=== PATIENT | male | born 1980 | race Caucasian/White ===

== ENCOUNTER 2019-02-02 21:02 | Emergency (ER) | payer BC, SELFPAY ==
[2019-02-02 21:10] VITALS: BP 160/105; PULSE 107; RESP 17; TEMP 36.7; O2SAT 97; BMI 33.5
--- NOTE | 2019-02-02 21:15 | DI.RAD.S_ITS ---
PROCEDURE: XR CHEST 1V INDICATIONS: palpitations TECHNIQUE: One view of the chest was acquired. COMPARISON: None. FINDINGS: Surgical changes and devices: None. Lungs and pleura: Lungs are clear. No pleural effusions or pneumothorax. Mediastinum: Mediastinal contours appear normal. Heart size is normal. Bones and chest wall: No suspicious bony lesions. Overlying soft tissues appear unremarkable. IMPRESSION: No evidence acute pulmonary process. Dictated by: Jan Russell M.D. on 02/02/2019 at 22:07 Approved by: Jan Russell M.D. on 02/02/2019 at 22:07
--- NOTE | 2019-02-02 21:19 | ED_ITS ---
HPI - Dizziness General Chief Complaint: Dizziness Stated Complaint: DOES NOT FEEL RIGHT , CAN'T EXPLAIN IT Time Seen by Provider: 02/02/19 21:19 Source: patient Mode of arrival: ambulatory Limitations: no limitations History of Present Illness HPI Narrative: Patient is a 39-year-old male here for evaluation of vague complaints to include not feeling very well and palpitations and lightheadedness. He states the symptoms started earlier today. He states he was at work. 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 He states that there were other individuals in the area down there are no one else felt sick. He states that he suddenly did not feel very good. He states the symptoms continued. He did you to dinner this evening. States he had 2 beers at dinner. He came in because he which is not feeling very well. Related Data Allergies Allergy/AdvReac Type Severity Reaction Status Date / Time No Known Drug Allergies Allergy Verified 02/02/19 21:10 Review of Systems Constitutional Denies fever(s), Reports lethargy and Reports weakness ENT Ears, Nose, Mouth, and Throat: Denies vertigo, Reports dizziness and Reports disequilibrium Cardiovascular Denies chest pain, Reports rapid heart rate, Reports palpitations and Denies dyspnea Respiratory Denies dyspnea Gastrointestinal Gastrointestinal: Denies abdominal pain, Reports nausea and Denies vomiting Musculoskeletal Denies back pain, Denies myalgias and Denies arthralgias Integumentary/Breasts Denies rash Neurologic Denies confusion, Denies vertigo, Reports dizziness, Reports disequilibrium and Reports weakness Psychiatric Denies confusion Endocrine Reports palpitations Hematologic/Lymphatic Denies easy bleeding and Denies easy bruising Allergic/Immunologic Denies urticaria [facility] Medical History Hypertension (Acute) Social History Smoking Status: Current every day smoker Social History Smoking Status: Current every day smoker Exam Initial Vital Signs Initial Vital Signs: Vital Signs Temperature 98.1 F 02/02/19 21:10 Pulse Rate 107 H 02/02/19 21:10 Respiratory Rate 17 02/02/19 21:10 Blood Pressure 160/105 H 02/02/19 21:10 Pulse Oximetry 97 02/02/19 21:10 Const General: cooperative, comfortable, well developed, well groomed and No acute distress Orientation: alert, awake and oriented x3 HENMT Head: normal to inspection and normocephalic Resp Effort & Inspection: normal respiratory effort Auscultation: clear to auscultation bilaterally Cardio Rate: tachycardic Rhythm: regular rhythm GI Inspection: non-distended Palpation: soft, No firm and No tender Skin Lesions: no lesions Rashes: no rashes Neuro General: alert, awake and oriented x3 Cognition: normal cognition Speech: speech normal Gait: normal gait Motor: muscle tone normal throughout Sensory Exam: no sensory deficits noted Extrem General: normal to inspection and capillary refill normal Other: Deformity of the left hand secondary to a prior injury. Psych Appearance: grossly normal and well kempt Course Orders Ordered: ED Orders 02/02/19 21:15 XR chest 1V Stat EKG-12 Lead Stat 02/02/19 21:18 Complete Blood Count AUTO DIFF Stat Comprehensive Metabolic Panel Stat Ethanol (ETOH) Stat Lipase Stat Thyroid Stimulating Hormone Stat 02/02/19 22:17 Urine Drug Screen, Rapid Stat Vital Signs - 8 hr 02/02/19 21:10 02/02/19 21:30 02/02/19 22:00 Temperature 98.1 F Pulse Rate 107 H 100 H 94 H Respiratory Rate 17 12 12 Blood Pressure 160/105 H Blood Pressure [Right Arm] 133/81 154/98 H Pulse Oximetry 97 95 96 02/02/19 23:15 Temperature 97.6 F Pulse Rate 90 Respiratory Rate 18 Blood Pressure Blood Pressure [Right Arm] 142/79 H Pulse Oximetry 96 MDM - Dizziness Lab Data Attestation: I reviewed the patient's lab results. Result diagrams: 02/02/19 21:18 02/02/19 21:18 Lab Results 02/02/19 02/02/19 02/02/19 Range/Units 21:18 21:18 21:18 WBC 9.8 (4.5-11.0) X10^3/uL RBC 4.70 (4.5-5.9) X10^6/uL Hgb 13.8 (13.5-17.5) g/dL Hct 40.6 L (41-53) % MCV 86.4 (80-100) fL MCH 29.5 (26-34) PG MCHC 34.1 (30-36) % RDW 15.6 H (11.6-14.8) % Plt Count 267 (150-400) X10^3/uL Neut % (Auto) 59.6 (50-75) % Lymph % (Auto) 27.1 (25-40) % [place] % (Auto) 11.0 (3-14) % Eos % (Auto) 1.6 L (2-4) % Baso % (Auto) 0.7 (0-2) % Neut # (Auto) 5900 (1001-1455) /uL Lymph # (Auto) 2700 (2240-5436) /uL [place] # (Auto) 1100 H (0-900) /uL Eos # (Auto) 200 (0-450) /uL Baso # (Auto) 100 (0-100) /uL Sodium 138 (137-145) mmol/L Potassium 3.8 (3.4-5.1) mmol/L Chloride 98 (98-107) mmol/L Carbon Dioxide 26 (22-32) mmol/L BUN 22 H (9-20) mg/dL Creatinine 0.90 (0.66-1.25) mg/dL Estimated GFR > 60.0 (>60) mL/min BUN/Creatinine Ratio 24.4 H (6-22) Glucose 110 H (70-100) mg/dL Calcium 9.5 (8.4-10.2) mg/dL Total Bilirubin 0.5 (0.2-1.3) mg/dL AST 44 (17-59) IU/L ALT 49 (21-72) IU/L Alkaline Phosphatase 47 (38-126) U/L Total Protein 8.8 H (6.3-8.2) g/dL Albumin 5.0 (3.5-5.0) g/dL Globulin 3.8 (1.7-4.1) g/dL Albumin/Globulin Ratio 1.3 (1.0-2.8) Lipase 61 (23-300) U/L TSH 2.86 (0.47-4.68) uIU/mL Urine Opiates Screen (Negative) Ur Oxycodone Screen (Negative) Urine Methadone Screen (Negative) Ur Barbiturates Screen (Negative) U Tricyclic Antidepress (Negative) Ur Phencyclidine Scrn (Negative) Ur Amphetamines Screen (Negative) U Methamphetamines Scrn (Negative) Ur MDMA Scrn (Ecstasy) (Negative) U Benzodiazepines Scrn (Negative) Urine Cocaine Screen (Negative) U Marijuana (THC) Screen (Negative) Ethyl Alcohol < 10 mg/dL 02/02/19 Range/Units 22:17 WBC (4.5-11.0) X10^3/uL RBC (4.5-5.9) X10^6/uL Hgb (13.5-17.5) g/dL Hct (41-53) % MCV (80-100) fL MCH (26-34) PG MCHC (30-36) % RDW (11.6-14.8) % Plt Count (150-400) X10^3/uL Neut % (Auto) (50-75) % Lymph % (Auto) (25-40) % [place] % (Auto) (3-14) % Eos % (Auto) (2-4) % Baso % (Auto) (0-2) % Neut # (Auto) (6794-8251) /uL Lymph # (Auto) (4452-2093) /uL [place] # (Auto) (0-900) /uL Eos # (Auto) (0-450) /uL Baso # (Auto) (0-100) /uL Sodium (137-145) mmol/L Potassium (3.4-5.1) mmol/L Chloride (98-107) mmol/L Carbon Dioxide (22-32) mmol/L BUN (9-20) mg/dL Creatinine (0.66-1.25) mg/dL Estimated GFR (>60) mL/min BUN/Creatinine Ratio (6-22) Glucose (70-100) mg/dL Calcium (8.4-10.2) mg/dL Total Bilirubin (0.2-1.3) mg/dL AST (17-59) IU/L ALT (21-72) IU/L Alkaline Phosphatase (38-126) U/L Total Protein (6.3-8.2) g/dL Albumin (3.5-5.0) g/dL Globulin (1.7-4.1) g/dL Albumin/Globulin Ratio (1.0-2.8) Lipase (23-300) U/L TSH (0.47-4.68) uIU/mL Urine Opiates Screen Negative (Negative) Ur Oxycodone Screen Negative (Negative) Urine Methadone Screen Negative (Negative) Ur Barbiturates Screen Negative (Negative) U Tricyclic Antidepress Negative (Negative) Ur Phencyclidine Scrn Negative (Negative) Ur Amphetamines Screen Negative (Negative) U Methamphetamines Scrn Negative (Negative) Ur MDMA Scrn (Ecstasy) Negative (Negative) U Benzodiazepines Scrn Negative (Negative) Urine Cocaine Screen Negative (Negative) U Marijuana (THC) Screen Negative (Negative) Ethyl Alcohol mg/dL Urine Dip Bedside Urine Glucose Negative Bedside Urine Bilirubin - Negative Bedside Urine Ketone - Negative Urine Specific [place] 1.025 Bedside Urine Occult Blood - Negative Bedside Urine pH 6.0 Bedside Urine Protein +/- 15 Bedside Urine Urobilinogen +/- 1mg Bedside Urine Nitrite - Negative Bedside Urine Leukocytes - Negative Esterase Imaging Data Chest x-ray: Radiologist's impression: No acute pathology ECG Data Attestation: I personally reviewed and interpreted this ECG as follows: Prior ECG tracings: not available for review Interpretation: Sinus tachycardia sign ventricular rate 103 Normal QRS Normal QTC No ST T wave changes MDM Narrative Medical decision making narrative: Patient's labs are unremarkable. Heart rate improved during his time here in the emergency department. Low suspicion for toxic ingestion. Low suspicion for workplace toxic exposures. No signs of infection. No AFib on the EKG. UDS was negative. He did have 2 beers prior to arrival however he states that his symptoms started earlier to that. Hold on further workup for now. Patient was given return precautions and follow-up instructions. He expressed understanding and agreement with plan. Discharge Plan Departure Patient Disposition: Home Clinical Impression: Tachycardia Discharge Date/Time: 02/02/19 23:27 Interventions: ED Discharge Assessment Last Done: 02/02/19 23:26 Instructions: DI for Dizziness-Nonvertigo Activity Restrictions/Additional Instructions: Your workup here in the emergency department was unremarkable. Contact your primary care doctor for follow-up. Be sure to increase her fluid intake. Return to the emergency department for any new or worsening symptoms
[2019-02-02 21:28] LABS: Add Manual Diff / Slide Review NO; Basophils Absolute Auto 100 /uL (0-100); Basophils Percent Auto 0.7 % (0-2); Eosinophils Absolute Auto 200 /uL (0-450); Eosinophils Percent Auto 1.6 % (2-4); Hematocrit 40.6 % (41-53); Hemoglobin 13.8 g/dL (13.5-17.5); Lymphocytes Absolute Auto 2700 /uL (1100-4500); Lymphocytes Percent Auto 27.1 % (25-40); Mean Corpuscular HGB Conc 34.1 % (30-36); Mean Corpuscular Hemoglobin 29.5 PG (26-34); Mean Corpuscular Volume 86.4 fL (80-100); Monocytes Absolute Auto 1100 /uL (0-900); Neutrophils Absolute Auto 5900 /uL (1500-7000); Neutrophils Percent Auto 59.6 % (50-75); Platelet Count 267 X10^3/uL (150-400); Red Cell Distribution Width 15.6 % (11.6-14.8); White Blood Cell Count 9.8 X10^3/uL (4.5-11.0)
[2019-02-02 21:30] VITALS: BP 133/81; PULSE 100; RESP 12; O2SAT 95
[2019-02-02 21:40] LABS: Alanine Aminotransferase 49 IU/L (21-72); Albumin Globulin Ratio 1.3 (1.0-2.8); Alkaline Phosphatase 47 U/L (38-126); Aspartate Aminotransferase 44 IU/L (17-59); BUN Creatinine Ratio 24.4 (6-22); Bilirubin Total 0.5 mg/dL (0.2-1.3); Blood Urea Nitrogen 22 mg/dL (9-20); Calcium 9.5 mg/dL (8.4-10.2); Carbon Dioxide 26 mmol/L (22-32); Chloride 98 mmol/L (98-107); Estimated Glomerular Filt Rate > 60.0 mL/min (>60); Ethanol (ETOH) < 10 mg/dL; Globulin 3.8 g/dL (1.7-4.1); Glucose 110 mg/dL (70-100); HEMOLYSIS < 15 (0-50); Lipase 61 U/L (23-300); Potassium 3.8 mmol/L (3.4-5.1); Sodium 138 mmol/L (137-145); Total Protein 8.8 g/dL (6.3-8.2)
[2019-02-02 22:00] VITALS: BP 154/98; PULSE 94; RESP 12; O2SAT 96
[2019-02-02 22:25] LABS: Thyroid Stimulating Hormone 2.86 uIU/mL (0.47-4.68)
[2019-02-02 22:39] LABS: Urine Amphetamines Negative (Negative); Urine Barbiturates Negative (Negative); Urine Benzodiazepines Negative (Negative); Urine Cocaine Negative (Negative); Urine MDMA Negative (Negative); Urine Methadone Negative (Negative); Urine Methamphetamines Negative (Negative); Urine Morphine/Opi cutoff 2000 Negative (Negative); Urine Oxycodone Negative (Negative); Urine Phencyclidine Negative (Negative); Urine Tetrahydrocannabinol Negative (Negative); Urine Tricyclic Antidepressant Negative (Negative)
[2019-02-02 23:15] VITALS: BP 142/79; PULSE 90; RESP 18; TEMP 36.4; O2SAT 96
== END 2019-02-02 23:27 | disposition home or self-care (01) ==
PROVIDERS: Emergency Provider Emergency Medicine
DX: R00.0 Tachycardia, unspecified (principal)
CPT/HCPCS: 36591; 71045; 80053; 80305; 80320; 81003; 83690; 84443; 85025; 93005; 93010; 99283; 99285

== ENCOUNTER 2024-03-07 15:52 | Emergency (ER) | payer BC, SELFPAY ==
[2024-03-07] VITALS (9 sets, daily range): BP systolic 138–158; BP diastolic 90–101; PULSE 72–88; RESP 13–18; TEMP 36.3–36.5; O2SAT 91–97; BMI 36.3
--- NOTE | 2024-03-07 16:00 | DI.RAD.S_ITS ---
PROCEDURE: XR CHEST 1V INDICATIONS: chest pain TECHNIQUE: One view of the chest was acquired. COMPARISON: [facility], CR, XR CHEST 1V, 02/02/2019, 21:38. FINDINGS: Surgical changes and devices: None. Lungs and pleura: Lungs are clear. No pleural effusions or pneumothorax. Mediastinum: Mediastinal contours appear normal. Heart size is normal. Bones and chest wall: No suspicious bony lesions. Overlying soft tissues appear unremarkable. IMPRESSION: No acute cardiopulmonary abnormality is seen. Dictated by: Andres Lehman M.D. on 03/07/2024 at 16:40 Approved by: Andres Lehman M.D. on 03/07/2024 at 16:40
--- NOTE | 2024-03-07 16:00 | EKG_ITS ---
[address] [address] Test Date: 2024-03-07 Pat Name: BABITA GARCIA Department: [facility] Room: Gender: Male [employer]: RAMEZ : 1980 Requested By: Order Number: [id number] Reading MD: Connor Griffin Measurements Intervals [place] Rate: 83 P: 40 VT: 146 QRS: 9 QRSD: 104 T: 66 QT: 390 QTc: 458 Interpretive Statements Normal sinus rhythm Electronically Signed On 03-07-2024 16:37:56 PDT by Connor Griffin
[2024-03-07] MEDS: ASPIRIN 81 MG CHEW TAB 324 MG PO (16:11)
[2024-03-07 16:16] LABS: Add Manual Diff / Slide Review NO; Basophils Absolute Auto 100 /uL (0-100); Basophils Percent Auto 1.7 % (0-2); Eosinophils Absolute Auto 200 /uL (0-450); Eosinophils Percent Auto 2.9 % (2-4); Hematocrit 40.9 % (41-53); Hemoglobin 13.9 g/dL (13.5-17.5); Lymphocytes Absolute Auto 3100 /uL (1100-4500); Lymphocytes Percent Auto 42.9 % (25-40); Mean Corpuscular HGB Conc 34.1 % (30-36); Mean Corpuscular Hemoglobin 31.2 PG (26-34); Mean Corpuscular Volume 91.5 fL (80-100); Monocytes Absolute Auto 500 /uL (0-900); Monocytes Percent Auto 7.1 % (3-14); Neutrophils Absolute Auto 3200 /uL (1500-7000); Neutrophils Percent Auto 45.4 % (50-75); Platelet Count 240 X10^3/uL (150-400); Red Blood Cell Count 4.48 X10^6/uL (4.5-5.9); Red Cell Distribution Width 15.3 % (11.6-14.8); White Blood Cell Count 7.1 X10^3/uL (4.5-11.0)
[2024-03-07 16:24] LABS: Prothrombin Time 11.4 SECONDS (9.4-12.5)
[2024-03-07 16:26] LABS: PTT Partial Thromboplastin Tim 34 SECONDS (25.1-36.5)
[2024-03-07 16:32] LABS: Alanine Aminotransferase 82 IU/L (<50); Albumin 4.4 g/dL (3.5-5.0); Albumin Globulin Ratio 1.1 (1.0-2.8); Alkaline Phosphatase 47 U/L (38-126); Aspartate Aminotransferase 120 IU/L (17-59); BUN Creatinine Ratio 21.7 (6-22); Bilirubin Total 0.6 mg/dL (0.2-1.3); Blood Urea Nitrogen 18 mg/dL (9-20); Calcium 8.3 mg/dL (8.4-10.2); Carbon Dioxide 28 mmol/L (22-32); Chloride 107 mmol/L (98-107); Creatine Kinase 292 U/L (55-170); Estimated Glomerular Filt Rate > 60 mL/min (>60); Glucose 143 mg/dL (70-100); HEMOLYSIS 40 (0-50); Lipase 109 U/L (23-300); Magnesium 1.6 mg/dL (1.6-2.3); Potassium 4.1 mmol/L (3.4-5.1); Sodium 142 mmol/L (137-145); Total Protein 8.4 g/dL (6.3-8.2)
[2024-03-07 16:44] LABS: Troponin I < 0.012 ng/mL (0.01-0.034)
[2024-03-07 18:18] LABS: Creatine Kinase 280 U/L (55-170)
[2024-03-07 18:30] LABS: Troponin I < 0.012 ng/mL (0.01-0.034)
--- NOTE | 2024-03-07 18:54 | ED_ITS ---
HPI - Chest Pain General Chief Complaint: Chest Pain Stated Complaint: lt arm numb/chest pain Time Seen by Provider: 03/07/24 18:11 Source: patient Mode of arrival: Ambulatory Limitations: no limitations History of Present Illness HPI narrative: 44-year-old male presents by private vehicle for sharp left-sided chest pain that began approximately 2 hours prior to arrival. Chest pain was sudden in onset, but already resolved by the time of arrival to the emergency department. This has never happened before. Denies associated shortness of breath, leg swelling. Denies recent surgeries or immobilizations, denies history of blood clots in himself or his family, denies leg swelling. Also complaining of 2 weeks of left upper extremity numbness from the shoulder down. He states that he has a remote history of crush injury to his left hand in his missing 2 of his fingers. He states that he normally has numbness in his left hand but this is the 1st time that the numbness has included his entire left arm. Denies weakness, neck pain, difficulty speaking, other complaints at this time Related Data Allergies Allergy/AdvReac Type Severity Reaction Status Date / Time No Known Drug Allergies Allergy Verified 03/07/24 16:00 Patient History Medical History Hypertension Social History Smoking Status: Current every day smoker Smoking Status: Current every day smoker tobacco type: cigarettes alcohol intake frequency: 0-2 drinks per day Substance Use Type: does not use Exam Initial Vital Signs Initial Vital Signs: Vital Signs Temperature 97.7 F 03/07/24 15:54 Pulse Rate 82 03/07/24 15:54 Respiratory Rate 18 03/07/24 15:54 Blood Pressure 158/101 H 03/07/24 15:54 Pulse Oximetry 97 03/07/24 15:54 Oxygen Delivery Method Room Air 03/07/24 15:54 Const: Awake, alert, no acute distress, nontoxic appearing Cardiac: regular rate, regular rhythm RESP: unlabored, clear bilaterally, no wheezing MSK: Negative axial load test, negative Spurling test, old deformity left hand. Skin: Warm, Dry, intact, no rashes Neuro: AO x3, CN II-XII grossly intact, numbness from left shoulder to left fingertips, 5/5 strength in biceps, triceps, flexion/extension of wrists bilaterally Course Orders Ordered: Discontinued Medications Aspirin (Aspirin 81 Mg Chew Tab) 324 mg PO NOW ONE Stop: 03/07/24 16:01 Last Admin: 03/07/24 16:11 Dose: 324 mg Documented By: GER Vital Signs Vital signs: Vital Signs - 8 hr 03/07/24 15:54 03/07/24 18:12 03/07/24 18:13 Temperature 97.7 F Pulse Rate 82 Respiratory Rate 18 Blood Pressure 158/101 H 141/90 H Pulse Oximetry 97 91 Oxygen Delivery Method Room Air 03/07/24 18:13 03/07/24 18:30 03/07/24 18:30 Temperature Pulse Rate 81 72 Respiratory Rate 13 Blood Pressure 138/92 H Pulse Oximetry 95 93 Oxygen Delivery Method 03/07/24 19:00 03/07/24 19:00 03/07/24 19:36 Temperature Pulse Rate 72 88 Respiratory Rate 13 18 Blood Pressure 138/90 Pulse Oximetry 93 97 Oxygen Delivery Method 03/07/24 20:00 Temperature Pulse Rate 72 Respiratory Rate 14 Blood Pressure Pulse Oximetry 94 Oxygen Delivery Method MDM - Chest Pain Differential Diagnosis Differential diagnosis: Likely stable angina, atypical chest pain and costochondritis Lab Data 03/07/24 16:00 03/07/24 16:00 Labs: Lab Results 03/07/24 03/07/24 Range/Units 16:00 17:58 WBC 7.1 (4.5-11.0) X10^3/uL RBC 4.48 L (4.5-5.9) X10^6/uL Hgb 13.9 (13.5-17.5) g/dL Hct 40.9 L (41-53) % MCV 91.5 (80-100) fL MCH 31.2 (26-34) PG MCHC 34.1 (30-36) % RDW 15.3 H (11.6-14.8) % Plt Count 240 (150-400) X10^3/uL Neut % (Auto) 45.4 L (50-75) % Lymph % (Auto) 42.9 H (25-40) % [place] % (Auto) 7.1 (3-14) % Eos % (Auto) 2.9 (2-4) % Baso % (Auto) 1.7 (0-2) % Neut # (Auto) 3200 (6935-4539) /uL Lymph # (Auto) 3100 (4663-3794) /uL [place] # (Auto) 500 (0-900) /uL Eos # (Auto) 200 (0-450) /uL Baso # (Auto) 100 (0-100) /uL PT 11.4 (9.4-12.5) SECONDS INR 1.0 (0.9-1.3) APTT 34 (25.1-36.5) SECONDS Sodium 142 (137-145) mmol/L Potassium 4.1 (3.4-5.1) mmol/L Chloride 107 (98-107) mmol/L Carbon Dioxide 28 (22-32) mmol/L BUN 18 (9-20) mg/dL Creatinine 0.83 (0.66-1.25) mg/dL Estimated GFR > 60 (>60) mL/min BUN/Creatinine Ratio 21.7 (6-22) Glucose 143 H (70-100) mg/dL Calcium 8.3 L (8.4-10.2) mg/dL Magnesium 1.6 (1.6-2.3) mg/dL Total Bilirubin 0.6 (0.2-1.3) mg/dL AST 120 H (17-59) IU/L ALT 82 H (<50) IU/L Alkaline Phosphatase 47 (38-126) U/L Total Creatine Kinase 292 H 280 H (55-170) U/L Troponin I < 0.012 < 0.012 (0.01-0.034) ng/mL Total Protein 8.4 H (6.3-8.2) g/dL Albumin 4.4 (3.5-5.0) g/dL Globulin 4.0 (1.7-4.1) g/dL Albumin/Globulin Ratio 1.1 (1.0-2.8) Lipase 109 (23-300) U/L Imaging Data Chest x-ray: Radiologist's Impression: PROCEDURE: XR CHEST 1V INDICATIONS: chest pain TECHNIQUE: One view of the chest was acquired. COMPARISON: [facility], , XR CHEST 1V, 02/02/2019, 21:38. FINDINGS: Surgical changes and devices: None. Lungs and pleura: Lungs are clear. No pleural effusions or pneumothorax. Mediastinum: Mediastinal contours appear normal. Heart size is normal. Bones and chest wall: No suspicious bony lesions. Overlying soft tissues appear unremarkable. IMPRESSION: No acute cardiopulmonary abnormality is seen. Dictated by: Andres Lehman M.D. on 03/07/2024 at 16:40 Approved by: Andres Lehman M.D. on 03/07/2024 at 16:40 CT scan - head: Radiologist's Impression: PROCEDURE: CT HEAD/BRAIN WO CON INDICATIONS: L ARM NUMBNESS X 2 WEEKS TECHNIQUE: Noncontrast 4.5 mm thick angled axial sections acquired from the foramen magnum to the vertex, with coronal and sagittal reformats. For radiation dose reduction, the following was used: automated exposure control, adjustment of mA and/or kV according to patient size. COMPARISON: None. FINDINGS: Image quality: Diagnostic. CSF spaces: Basal cisterns are patent. No extra-axial fluid collections. Ventricles are normal in size and shape. Brain: No midline shift. No intracranial masses or hemorrhage. [place]-white matter interface is normal. Skull and face: Calvarium and visualized facial bones are intact, without suspicious lesions. Sinuses: Visualized sinuses and mastoids are clear. IMPRESSION: No acute intracranial pathology. Dictated by: Marixa Rivera M.D. on 03/07/2024 at 19:47 Approved by: Marixa Rivera M.D. on 03/07/2024 at 19:47 ECG Data Interpretation: Normal sinus rhythm at 83 beats per minute. Normal [place], normal axis, no ST T wave changes MDM Narrative Medical decision making narrative: Well-appearing patient with 2 separate issues. Patient presented for sharp chest pain that was brief, had already resolved by the time of arrival to the emergency department, and has not returned since checking into the emergency department several hours ago. EKG is nonischemic, patient does smoke cigarettes and reports history of hypertension, otherwise has no known risk factors for coronary disease. X-ray imaging negative for acute findings. Troponins undetectable x2. Patient has been chest pain-free for multiple hours and at this time symptoms do not appear consistent with ACS. Left upper extremity numbness has been ongoing for several weeks. He has equal sensation between his upper extremities with intact strength in biceps and triceps, as well as flexion and extension of wrists bilaterally. He was reporting decreased sensation from the shoulder joint down words. No neck pain or physical exam signs to suggest radiculopathy. I have low suspicion for ischemic event, however based on the distribution of symptoms as well as duration a CT brain will be ordered. CT brain negative for acute findings. Patient resting comfortably in bed and has continued to have no return of chest pain. Patient counseled on all lab and imaging findings. Recommended primary care follow up, especially if he continues to experience numbness in his upper extremity. ED return precautions discussed at bedside. Discharge Plan Departure Patient Disposition: Home Clinical Impression: Chest pain, Arm numbness left Instructions: DI for Atypical Chest Pain Activity Restrictions/Additional Instructions: Your EKG, laboratory work, and chest x-ray were normal. I do not know the cause of your chest pain but it was not look like a heart attack at this time. The CT we took of your brain was normal, this is not appear to be a stroke. Based on the distribution of your symptoms this seems related to nerves either in the arm or the neck. I recommend follow up with your primary care physician as soon as you can for further investigation of the symptoms. If you notice weakness in your arm I would return to an emergency department for additional evaluation. Stand Alone Forms: Patient Portal/API
== END 2024-03-07 20:45 | disposition home or self-care (01) ==
PROVIDERS: Emergency Medicine; Emergency Provider Emergency Medicine
DX: R07.9 Chest pain, unspecified (principal); R20.0 Anesthesia of skin
CPT/HCPCS: 36415; 70450; 71045; 80053; 82550; 83690; 83735; 84484; 85025; 85610; 85730; 93005; 99284